=== PATIENT | male | born 1975 | race Two or more races ===

== ENCOUNTER 2017-07-26 16:36 | Emergency (ER) | payer BC ==
[~2017-07-26] VITALS: Ht 175.3 cm; Wt 93.5 kg
[~2017-07-26 16:36] MED LIST: DIAZ-90 PO; HYDR-902 PO; IBUP-1542 PO
[2017-07-26 16:42] VITALS: Ht 175.3 cm; Wt 93.5 kg
[2017-07-26] MEDS ORDERED: CEFAZOLIN 1 GM INJ IM ONE (19:00)
[2017-07-26] MEDS ORDERED: LIDOCAINE 1% (MDV) 20 ML INJ ONE (19:00)
[2017-07-26] MEDS ORDERED: DIPHTH/TET/ACEL PERTUSS (ADULT) 0.5 ML VIAL IM* ONE (19:00)
--- NOTE | 2017-07-26 19:15 | ERD ---
ER Documentation Chief Complaint Chief Complaint left index finger pain possible foreign body x 2 weeks, pain worse today HPI 42-year-old male presents here in emergency department for a foreign body stuck in the palmar aspect of the left index finger for 2 weeks now, patient was cutting using a saw, a sawblade got stuck into the finger, is been 2 weeks, now is complaining of pain sharp pain 4/10 scale, as was upon touching the area. Patient denies any fever chills. Patient denies any redness or swelling. ROS All systems reviewed and are negative except as per history of present illness. Medications Home Meds Active Scripts Hydrocodone/Acetaminophen (Nisula 10-325 Tablet) 1 Each Tablet, 1 TAB PO Q6H Y for SEVERE PAIN LEVEL 7-10, #20 TAB Prov:NATHALIA CORRALES [employer] 09/15/16 Diazepam* (Valium*) 5 Mg Tablet, 5 MG PO Q8 Y for MUSCLE SPASMS, #10 TAB Prov:NATHALIA CORRALES NP 09/15/16 Ibuprofen* (Motrin*) 600 Mg Tab, 600 MG PO Q6H Y for PAIN AND OR ELEVATED TEMP, #30 TAB Prov:NATHALIA CORRALES [employer] 09/15/16 Reported Medications [none] Unknown Strength No Conflict Check 09/15/16 Allergies Allergies: Coded Allergies: No Known Allergy (Unverified , 09/14/16) PMhx/Soc Unknown last tetanus immunization Medical and Surgical Hx: pt denies Medical Hx, pt denies Surgical Hx History of Surgery: No Anesthesia Reaction: No Hx Neurological Disorder: No Hx Respiratory Disorders: No Hx Cardiac Disorders: No Hx Psychiatric Problems: No Hx Miscellaneous Medical Probl: No Hx Alcohol Use: No Hx Substance Use: No Hx Tobacco Use: No Smoking Status: Former smoker FmHx Family History: No coronary disease, No diabetes, No other Physical Exam Vitals Vital Signs Date Time Temp Pulse Resp B/P Pulse Ox O2 Delivery O2 Flow Rate FiO2 07/26/17 16:42 97.9 77 18 135/92 99 Physical Exam GENERAL: The patient is well developed and appropriate for usual state of health, in no apparent distress. CHEST: Clear to auscultation bilaterally. There are no rales, wheezes or rhonchi. HEART: Regular rate and rhythm. No murmurs, clicks, rubs or gallops. No S3 or S4. ABDOMEN: Soft, nontender and nondistended. Good bowel sounds. No rebound or guarding. No gross peritonitis. No gross organomegaly or masses. No Marquez sign or McBurney point tenderness. BACK: No midline or flank tenderness. EXTREMITIES: Equal pulses bilaterally. There is no peripheral clubbing, cyanosis or edema. No focal swelling or erythema. Full range of motion. Grossly neurovascularly intact. NEURO: Alert and oriented. Cranial nerves 2-12 intact. Motor strength in all 4 extremities with 5/5 strength. Sensation grossly intact. Normal speech and gait. SKIN: No redness or swelling noted in the index finger. there is no apparent rash or petechia. The skin is warm and dry. HEMATOLOGIC AND LYMPHATIC: There is no evidence of excessive bruising or lymphedema. No gross cervical, axillary, or inguinal lymphadenopathy. Results 24 hrs Current Medications Medications (Trade) Dose Ordered Sig/Jorge Route PRN Reason Start Time Stop Time Status Last Admin Dose Admin Diphtheria/ Tetanus/Acell Pertussis (Adacel) 0.5 ml ONCE ONCE IM* 07/26/17 19:00 07/26/17 19:01 DC 07/26/17 19:07 Cefazolin Sodium (Ancef) 1 gm ONCE ONCE IM 07/26/17 19:00 07/26/17 19:01 DC 07/26/17 19:05 Lidocaine (Xylocaine 1% (Mdv) 20 ml) 20 ml STK-MED ONCE .ROUTE 07/26/17 19:00 07/26/17 19:01 DC Tdap was given to prevent tetanus. Patient tolerated medication well. Ancef was given here in the emergency department. Tolerated medication well. PROCEDURE: XR Finger. CLINICAL INDICATION: Trauma. Left second finger pain. TECHNIQUE: Three views. Frontal, lateral, and oblique. COMPARISON: None available FINDINGS: There is no fracture or dislocation. The soft tissues are normal. Articular surfaces are intact. There is no lytic or blastic lesion. There is a linear metal foreign body in the soft tissues of the terminal tuft region anteriorly measuring 0.5 cm in length. IMPRESSION: 1. Linear metal foreign body in the soft tissues of the terminal tuft region anteriorly measuring 0.5 cm in length. 2. Otherwise unremarkable study. RPTAT: QQ .Paulie Alvarez MD, MD Date Time Electronically viewed and signed by .Paulie Alvarez MD, MD on 07/26/2017 19:37 .R/ CC: NATHALIA CORRALES [employer] PROCEDURE: Ultrasound of the soft tissues of the second finger. CLINICAL INDICATION: Left second finger foreign body. TECHNIQUE: High-resolution sonography of the left second finger at the site of the foreign body was performed in the axial and sagittal planes. COMPARISON: Left second finger radiographs done earlier the same day. FINDINGS: At the site of the foreign body, there is a linear structure consistent with the foreign body measuring 0.5 cm in length. This is within the soft tissues of the terminal tuft region. There is no fluid collection or mass. IMPRESSION: 1. Linear foreign body consistent with the metal foreign body within the soft tissues of the second finger distally as seen on the prior radiograph. RPTAT: QQ .Paulie Alvarez MD, MD Date Time Electronically viewed and signed by .Paulie Alvarez MD, MD on 07/26/2017 19:35 .R/ CC: NATHALIA CORRALES [employer] Procedures/MDM Medical decision making: Patient is a foreign body in the left index finger, metal got stuck inside, tetanus vaccine was updated, Ancef was given to prevent infection, I discussed this case with my attending physician, considering it is in the hand, patient will be advised to see a hand surgeon for possible removal of the foreign body, this time, no symptoms of any infection, no symptoms of any neurovascular compromise. Patient was given copies of CDs and x-ray results , patient was advised to follow-up with primary care doctor, get referred to hand specialist for removal of foreign body. Patient was advised to return to emergency department for high fever, redness and swelling, any other worsening symptoms. She was given for Keflex to prevent infection was given, ibuprofen for pain, tramadol for severe pain. Disposition: Home. Stable. Departure Diagnosis: Primary Impression: Foreign body (FB) in soft tissue Condition: Stable Patient Instructions: Foreign Body, Soft Tissue [Not Removed] Additional Instructions: see hand surgeon for removal of foreign body NATHALIA CORRALES NP Jul 26, 2017 19:15
--- NOTE | 2017-07-26 19:35 | RADRPT ---
PROCEDURE: Ultrasound of the soft tissues of the second finger. CLINICAL INDICATION: Left second finger foreign body. TECHNIQUE: High-resolution sonography of the left second finger at the site of the foreign body wa s performed in the axial and sagittal planes. COMPARISON: Left second finger radiographs done earlier the same day. FINDINGS: At the site of the foreign body, there is a linear structure consistent with the foreign body measur ing 0.5 cm in length. This is within the soft tissues of the terminal tuft region. There is no fluid collection or mass. IMPRESSION: 1. Linear foreign body consistent with the metal foreign body within the soft tissues of the second finger distally as seen on the prior radiograph. RPTAT: QQ .Paulie Alvarez MD, MD Date Time Electronically viewed and signed by .Paulie Alvarez MD, on 07/26/2017 19:35 .R/
--- NOTE | 2017-07-26 19:37 | RADRPT ---
PROCEDURE: XR Finger. CLINICAL INDICATION: Trauma. Left second finger pain. TECHNIQUE: Three views. Frontal, lateral, and oblique. COMPARISON: None available FINDINGS: There is no fracture or dislocation. The soft tissues are normal. Articular surfaces are intact. There is no lytic or blastic lesion. There is a linear metal foreign body in the soft tissues of the terminal tuft region anteriorly shreya uring 0.5 cm in length. IMPRESSION: 1. Linear metal foreign body in the soft tissues of the terminal tuft region anteriorly measuring 0 .5 cm in length. 2. Otherwise unremarkable study. RPTAT: QQ .Paulie Alvarez MD, MD Date Time Electronically viewed and signed by .Paulie Alvarez MD, MD on 07/26/2017 19:37 .R/
[2017-07-26] MEDS ORDERED: IBUP-1542 PO (20:13)
[2017-07-26] MEDS ORDERED: TRAM50TA2 PO (20:13)
[2017-07-26] MEDS ORDERED: CEPH-443 PO (20:13)
== END 2017-07-26 21:18 | disposition home or self-care (01) ==
LOC: FTE 16:36
DX: S60.451A Superficial foreign body of left index finger, initial encounter (principal); W27.0XXA Contact with workbench tool, initial encounter; Y92.9 Unspecified place or not applicable; Z23 Encounter for immunization; Z87.891 Personal history of nicotine dependence
CPT/HCPCS: 73140; 76536; 90471; 90715; 96372; J0690; Z7502; Z7610